=== PATIENT | female | born 2000 | race African-American/Black ===

== ENCOUNTER 2025-07-03 14:11 | Emergency (ER) | payer SELFPAY ==
[~2025-07-03] VITALS: Ht 175.3 cm; Wt 105.0 kg
[2025-07-03 14:22] VITALS: TEMP 36.9; O2SAT 99
[2025-07-03] MEDS ORDERED: GABA-529 MT (18:51)
[2025-07-03] MEDS ORDERED: LIDO-53 TP (18:51)
[2025-07-03 19:03] VITALS: BP 108/67; PULSE 60; RESP 12; O2SAT 100
== END 2025-07-03 19:11 | disposition home or self-care (01) ==
LOC: ER 14:11
DX: R20.2 Paresthesia of skin (principal); Z79.899 Other long term (current) drug therapy
CPT/HCPCS: 99284; 73090; 73100; A6449